=== PATIENT | male | born 1985 | race Caucasian/White ===

== ENCOUNTER 2017-01-05 11:07 | Inpatient (IN) | payer OTHER ==
--- NOTE | 2016-12-31 11:09 | PAT Medication Instructions ---
Service Date Dec 31, 2016. Current Home Medication List No Active Prescriptions or Reported Meds Medication Instructions For Your Scheduled Surgery No Active Prescriptions or Reported Meds- Please contact PAT department if starting any new medications prior to surgery. If you have any questions please call us at [phone] or [phone] or [phone]
--- NOTE | 2016-12-31 11:38 | DIAGNOSTIC IMAGING REPORT ---
CHEST 2 VIEWS ROUTINE CLINICAL HISTORY: PAT COMPARISON STUDY: No previous studies for comparison. FINDINGS: The cardiac and mediastinal contours are normal. There is no evidence of focal pulmonary consolidation. There is no evidence of failure. No pleural effusions are visualized.[ IMPRESSION: No active disease in the chest. Electronically signed by: Clifton Reyes M.D. 12/31/2016 11:36 AM Dictated Date/Time: 12/31/2016 11:35 AM
[2016-12-31 12:00] LABS: BASO % 0.4 %; BASO ABS # 0.03 K/uL (0-0.2); COMPLETE YES; EOS % 3.4 %; IG% 0.4 %; LYMPH % 32.5 %; MEAN CELL VOLUME 90.6 fL (80-100); MEAN CORPUSCULAR HEMOGLOBIN 30.8 pg (25-34); MEAN PLATELET VOLUME 10.6 fL (7.4-10.4); MONO % 8.8 %; NEUT % 54.5 %; PLATELET COUNT 185 K/uL (130-400); WHITE BLOOD COUNT 7.07 K/uL (4.8-10.8)
[2016-12-31 12:01] LABS: URINE APPEARANCE CLEAR (CLEAR); URINE BILIRUBIN NEG (NEG); URINE COLOR YELLOW; URINE NITRITE NEG (NEG); URINE SPECIFIC GRAVITY 1.019 (1.000-1.030); UROBILINOGEN NEG (NEG); ZZUR CULT IF INDIC CLEAN CATCH NO
[2016-12-31 12:07] LABS: BUN/CREATININE RATIO 9.3 (10-20); CALCIUM 9.2 mg/dl (8.5-10.1); POTASSIUM 3.7 mmol/L (3.5-5.1)
[2016-12-31 12:11] LABS: MANUAL MICROSCOPIC REQUIRED? NO; REVIEW REQ? NO
[2017-01-05] VITALS (7 sets, daily range): BP systolic 115–132; BP diastolic 67–89; PULSE 76–112; TEMP 36.3–36.8; O2SAT 97–99; Ht 177.8 cm; Wt 96.8 kg
[~2017-01-05] VITALS: Ht 177.8 cm; Wt 96.8 kg
[~2017-01-05 11:07] MED LIST: CLINDAMYCIN 600 MG/54 ML D5W IV SCH; CLINDAMYCIN PHOS 150 MG/ML 2 ML VIAL IV SCH; LACTATED RINGER'S 1000ML 1,000 ML IV SCH
[2017-01-05] MEDS ORDERED: IBUP-103 PO (11:38)
[2017-01-05] MEDS ORDERED: ACET-1256 PO (11:38)
[2017-01-05] MEDS ORDERED: EpHEDrine SULFATE INJ 50 MG/ML AMP IV PRN (12:30)
[2017-01-05] MEDS ORDERED: HYDROmorphone INJ 1 MG/ML SYR IV PRN (12:30)
[2017-01-05] MEDS ORDERED: ATROPINE SULFATE 0.1 MG/ML 5ML SYR IV PRN (12:30)
[2017-01-05] MEDS ORDERED: ONDANSETRON INJ 2 MG/ML 2 ML VIAL IV PRN (12:30)
[2017-01-05] MEDS ORDERED: PROMETHAZINE HCL INJ 6.25 MG in SODIUM CHLORIDE 0.9% 50ML 50 ML IV PRN (12:30)
[2017-01-05] MEDS ORDERED: MIDAZOLAM HCL 1 MG/ML 2ML VIAL ONE (12:32)
[2017-01-05] MEDS ORDERED: FENTANYL CITRATE INJ 50 MCG/1 ML 2 ML VIAL ONE ×3 (12:32→15:19)
--- NOTE | 2017-01-05 12:34 | History & Physical Bridge Note ---
H&P Re-Evaluation Bridge Note: I have examined the patient, reviewed the History & Physical and in the interval since the performance of the History & Physical I have noted the following changes of clinical significance: No changes noted
--- NOTE | 2017-01-05 12:35 | History and Physical ---
History & Physical Date Jan 05, 2017. Chief Complaint Back and leg pain History of Present Illness The patient is a 31 year old male with complaints of Additional History Hepatic Disease: No Endocrine Disorder: No Kidney Disease: No Hypertension: No Heart Disease: No Bleeding Tendencies: No Infectious Diseases: No Allergies Coded Allergies: Penicillins (Verified Allergy, Unknown, UNKNOWN, 01/05/17) Home Medications Scheduled Acetaminophen (Tylenol), 2 TAB PO Q6 Ibuprofen Tab (Advil), 400-600 MG PO Q6H Physical Examination Skin: warm/dry, no rash Eyes: normal inspection, EOMI, sclerae normal ENT: normal ENT inspection, pharynx normal Head: normocephalic, atraumatic Neck: supple, no adenopathy, trachea midline Respiratory/Chest: lungs clear, normal breath sounds, no respiratory distress Cardiovascular: regular rate, rhythm, no edema, no murmur Abdomen / GI: normal bowel sounds, non tender Back: normal inspection Extremities: normal inspection, normal range of motion Neurologic/Psych: no motor/sensory deficits, alert, normal reflexes, oriented x 3 Diagnosis Herniated nucleus pulposus recurrent in nature L5-S1 Plan of Treatment Lumbar decompression and fusion L5-S1
[2017-01-05] MEDS ORDERED: BUPIVACAINE/EPINEPHRINE 0.5% MPF 1:200,000 10 ML VIAL ONE (13:05)
[2017-01-05] MEDS ORDERED: BACITRACIN 50000 UNIT VIAL ONE (13:06)
[2017-01-05] MEDS ORDERED: HYDROmorphone INJ 2 MG/ML SYR/VIAL ONE (13:27)
[2017-01-05] MEDS ORDERED: DEXAMETHASONE SOD INJ 4 MG/ML VIAL ONE (14:03)
[2017-01-05] MEDS ORDERED: LIDOCAINE HCL 2% 2 ML VIAL (20MG/ML) ONE (14:04)
[2017-01-05] MEDS ORDERED: PROPOFOL IV EMULSION 10 MG/ML 20 ML VIAL IV ONE (14:04)
[2017-01-05] MEDS ORDERED: LARYING-O-JET KIT (LTA) ONE ×2 (14:22)
[2017-01-05] MEDS ORDERED: NEOSTIGMINE METHYLSULFATE 1 MG/ML 10ML VIAL ONE (14:26)
[2017-01-05] MEDS ORDERED: GLYCOPYRROLATE INJ 0.2 MG/ML VIAL ONE (14:26)
[2017-01-05] MEDS ORDERED: FLOSEAL HEMOSTATIC MATRIX 10ML TOP ONE (15:05)
[2017-01-05] MEDS ORDERED: SODIUM CHLORIDE 0.9% 1000ML 1,000 ML IV SCH (15:19)
--- NOTE | 2017-01-05 15:20 | DIAGNOSTIC IMAGING REPORT ---
LUMBAR SPINE, INTRAOPERATIVE FLUOROSCOPY HISTORY: L5-S1 revision and decompression. FLUOROSCOPY TIME: 19 seconds. FINDINGS: Intraoperative fluoroscopy was provided for the lumbar spine. 2 fluoroscopic spot images were obtained. Posterior decompression fusion at L5-S1 with pedicle screws and rods. The hardware appears intact. IMPRESSION: Fluoroscopy provided for a L5-S1 posterior decompression and fusion. Electronically signed by: Erasto Sims M.D. 01/05/2017 3:19 PM Dictated Date/Time: 01/05/2017 3:18 PM
--- NOTE | 2017-01-05 15:24 | [facility] Operative Report ---
Operative Report Operative Date Jan 05, 2017. Pre-Operative Diagnosis Herniated nucleus pulposus recurrent in nature L5-S1 Post-Operative Diagnosis Herniated nucleus pulposus recurrent in nature L5-S1 Procedure(s) Performed #1 revision decompression L5-S1. 2 posterior spinal fusion L5-S1. #3 placement of posterior inch rotation L5-S1. #4 interbody fusion L 5 S1. #5 placement peek cage 12 x 22 mm L5-S1. #6 placement of locally harvested morcellized autograft in the posterior lateral gutters. #7 placement of osteoamp in the interbody space and posterior lateral gutters. Surgeon Threader Surgeon(s) Leigha Davalos PA-C Estimated Blood Loss 200ml Findings Recurrent disc herniation L5-S1 the right Specimens None per surgeon Description of Procedure Was met with preoperatively case discussed all questions are dressed. After informed consent patient was taken back to the operative suite and after intubation placed in a prone position on the Andrey table top Jared frame. All bony prominences were well-padded eyes inspected to ensure no external pressure. This point the lumbar spines prepped draped nostril fashion. Sharp dissection with the assistance of Bovie cautery was performed onto an exposing the remaining lamina and transverse processes of L5 and the sacral alar bilaterally. Revision complete laminectomy of L5 was performed identified significant compression traversing S1 nerve root on the right. There is evidence of recurrent disc herniation was removed in its entirety. Pedicle screws then placed in L5 and S1 levels bilaterally with assistance of fluoroscopy and the probably size joan placed. Through a transforaminal approach on the right complete discectomy was performed and plate created subcortical bleeding bone and a 12 x 22 mm peek cage filled with bone graft tapped in position. Rods were then compressed locked and final position bilaterally. The transverse processes of L5 and sacral alar burred to subcortical bleeding bone. Remaining locally harvested morcellized autograft bone graft was placed in the posterior gutters. 15 round NITO drain inserted. Incision closed with 1 Vicryl in the fascia 2-0 Vicryl subcutaneously for Monocryl for final skin closure. Sterile Steri-Strips sterile dressing placed. Patient awakened taken to PACU stable condition. Please note Leigha Martins present throughout the entire procedure involved in patient positioning complex portions of the procedure and final skin closure. I attest to the content of the Intraoperative Record and any orders documented therein. Any exceptions are noted below.
[2017-01-05] MEDS ORDERED: BISACODYL 10 MG SUPP PR PRN (15:30)
[2017-01-05] MEDS ORDERED: ACETAMINOPHEN IV 100 ML IV PRN (15:30)
[2017-01-05] MEDS ORDERED: PROMETHAZINE HCL INJ 12.5 MG in SODIUM CHLORIDE 0.9% 50ML 50 ML IV PRN (15:30)
[2017-01-05] MEDS ORDERED: DO NOT ADMINISTER FLU VACCINE PRN ×3 (15:30)
[2017-01-05] MEDS ORDERED: MAGNESIUM HYDROXIDE SUSP 30 ML UDC PO PRN (15:30)
[2017-01-05] MEDS ORDERED: LORAZEPAM 0.5 MG TAB PO PRN (15:30)
[2017-01-05] MEDS ORDERED: FAMOTIDINE 20 MG TAB PO PRN (15:30)
[2017-01-05] MEDS ORDERED: NALOXONE HCL 0.4 MG/1 ML VIAL/CARP IV PRN ×2 (15:30)
[2017-01-05] MEDS ORDERED: LORAZEPAM INJ 0.5 MG in SYRINGE 0 ML IV PRN (15:30)
[2017-01-05] MEDS ORDERED: SOD PHOSPHATE/SOD BIPHOSPHATE ENEMA 132 ML BTL PR PRN (15:30)
[2017-01-05] MEDS ORDERED: DO NOT ADMINISTER PNEUMOCOCCAL VACCINE PRN ×2 (15:30)
[2017-01-05] MEDS ORDERED: hydrOXYzine HCL 25 MG TAB PO PRN (15:30)
[2017-01-05] MEDS ORDERED: ACETAMINOPHEN 500 MG TAB PO PRN (15:30)
[2017-01-05] MEDS ORDERED: METOCLOPRAMIDE HCL INJ 5 MG/ML 2 ML VIAL IV PRN (15:30)
[2017-01-05] MEDS ORDERED: ALUMINUM/MAGNESIUM SUSP 30 ML UDC PO PRN (15:30)
[2017-01-05] MEDS ORDERED: HYDROmorphone HCL 0.5MG/ML 50 ML CASSETTE ONE (15:40)
[2017-01-05] MEDS ORDERED: ROCURONIUM BROMIDE 10 MG/ML 5 ML VIAL IV ONE (15:44)
[2017-01-05] MEDS: FENTANYL CITRATE INJ 50 MCG/1 ML 2 ML VIAL IV PRN ×4 (16:04→16:23)
--- NOTE | 2017-01-05 16:34 | Anesthesiology Progress Note ---
Anesthesia Post Op Note Date & Time Jan 05, 2017 at 16:33 Vital Signs Pain Intensity: 4 Vital Signs Past 12 Hours Date Time Temp Pulse Resp B/P (MAP) Pulse Ox O2 Delivery O2 Flow Rate FiO2 01/05/17 16:25 36.3 97 16 135/71 98 Nasal Cannula 4 01/05/17 16:15 91 14 124/69 99 Nasal Cannula 4 01/05/17 16:05 96 14 111/54 99 Nasal Cannula 4 01/05/17 15:55 99 14 106/62 99 Mask 10 01/05/17 15:45 109 14 116/58 100 Mask 10 01/05/17 15:37 36.7 118 14 127/64 98 Mask 10 01/05/17 11:25 36.8 76 18 128/82 (97) 99 Room Air Notes Mental Status: alert / awake / arousable, participated in evaluation Pt Amnestic to Procedure: Yes Nausea / Vomiting: adequately controlled Pain: adequately controlled Airway Patency, RR, SpO2: stable & adequate BP & HR: stable & adequate Hydration State: stable & adequate Anesthetic Complications: no major complications apparent Doing well. VSS
[2017-01-05] MEDS: HYDROmorphone HCL 0.5MG/ML 50 ML CASSETTE IV PRN ×2 (16:50→23:11)
[2017-01-05] MEDS: LACTATED RINGER'S 1000ML 1,000 ML IV SCH ×2 (18:13→21:52)
[2017-01-05] MEDS: ONDANSETRON INJ 2 MG/ML 2 ML VIAL IV PRN ×2 (18:13→19:13)
[2017-01-05] MEDS: DOCUSATE SODIUM/SENNA 50/8.6MG TAB PO SCH ×2 (21:00→21:05)
[2017-01-05] MEDS: DEXAMETHASONE INJ 6 MG in SYRINGE 0 ML IV SCH (21:52)
[2017-01-05] MEDS: CLINDAMYCIN IV 600 MG in DEXTROSE 5% 50ML 50 ML IV SCH (21:52)
[2017-01-06 03:35] VITALS: BP 130/65; PULSE 99; TEMP 36.7; O2SAT 96
[2017-01-06] MEDS: LACTATED RINGER'S 1000ML 1,000 ML IV SCH (03:48)
[2017-01-06] MEDS ORDERED: HYDROmorphone INJ 0.5 MG/0.5 ML SYR IV PRN (06:00)
[2017-01-06] MEDS ORDERED: HYDROmorphone INJ 1 MG/ML SYR IV PRN (06:00)
[2017-01-06] MEDS ORDERED: OXYCODONE HCL IR 5 MG TAB (IMMEDIATE RELEASE) PO PRN (06:00)
[2017-01-06] MEDS ORDERED: DC PCA ONE (06:00)
[2017-01-06] MEDS: CLINDAMYCIN IV 600 MG in DEXTROSE 5% 50ML 50 ML IV SCH (06:09)
[2017-01-06] MEDS: DEXAMETHASONE INJ 6 MG in SYRINGE 0 ML IV SCH ×2 (06:09→14:21)
[2017-01-06 06:16] LABS: BASO % 0.1 %; BASO ABS # 0.01 K/uL (0-0.2); COMPLETE YES; HEMATOCRIT 39.4 % (42-52); IG% 0.3 %; LYMPH % 5.6 %; LYMPH ABS # 1.01 K/uL (1.2-3.4); MEAN CELL VOLUME 89.7 fL (80-100); MEAN CORPUSCULAR HGB CONC 34.5 g/dl (32-36); MEAN PLATELET VOLUME 10.6 fL (7.4-10.4); MONO % 5.6 %; NEUT % 88.4 %; PLATELET COUNT 181 K/uL (130-400); RED BLOOD COUNT 4.39 M/uL (4.7-6.1); WHITE BLOOD COUNT 18.17 K/uL (4.8-10.8)
[2017-01-06] MEDS ORDERED: NURSING VERBAL MED ORDER ONE (06:30)
[2017-01-06 06:54] LABS: BUN/CREATININE RATIO 12.7 (10-20); CALCIUM 9.1 mg/dl (8.5-10.1); CREATININE 1.1 mg/dl (0.60-1.40); POTASSIUM 3.9 mmol/L (3.5-5.1)
[2017-01-06 07:07] VITALS: BP 116/56; PULSE 100; TEMP 36.8; O2SAT 94
[2017-01-06] MEDS ORDERED: RXC5 PO (07:47)
--- NOTE | 2017-01-06 07:47 | Discharge Instructions ---
Discharge Instructions Date of Service Jan 06, 2017. Admission Reason for Admission: Lumbar Spinal Stenosis Discharge Discharge Diagnosis / Problem: lumbar stenosis Discharge Goals Goal(s): Improve function Activity Recommendations Activity Limitations: per Instructions/Follow-up section . Instructions / Follow-Up Instructions / Follow-Up ACTIVITY RECOMMENDATIONS: SELF CARE INSTRUCTIONS AFTER THORACIC/LUMBAR FUSIONS 1. You may walk to your tolerance. It is good exercise for your legs and back. Expect some back and intermittent leg aches and pains. 2. You may perform "counter-top" level activities (make a sandwich, selena with a project, etc.). 3. No bending or lifting of more than 10 pounds or back twisting of any nature (roll like a log when turning in bed). 4. You may ride in a car for 20-30 minutes at a time. No driving until after your first visit with your doctor. 5. Frequent changes of position and restricting sitting to 30 minutes at a time will help limit the amount of back spasms and stiffness you may experience. 6. You may discontinue the use of ambulatory aids (cane, crutches, etc.) once your strength and confidence allow. 7. You may firearms inspector the shower and let water strike your incision when you arrive home at least once daily. Do not take a tub bath, sit in a hot tub or go into a swimming pool until after your first recheck in the office. SPECIAL CARE INSTRUCTIONS: VERY IMPORTANT TO READ AND REVIEW A. Your surgical incision has been closed with a cosmetic suture under the skin that will dissolve in about 6 weeks. In 14 days, you can use a pair of clean scissors and cut the suture that is left outside of the skin at the ends of your incision. 1. The small skin tapes can be removed 7 days after surgery if they have not fallen off by that point. 2. You may keep the wound open to air as much as possible to promote healing after post-op day number 5 unless told otherwise by your doctor. 3. If you think the wound looks like it is becoming infected (redness or worsening drainage) and/or you are experiencing fever, chill or worsening back pain and muscle spasms, contact the office so that we may evaluate you as soon as possible. B. Complications are uncommon, but please contact us if you have any signs or symptoms of: 1. wound infection (fever higher than 102.5 degrees F, redness, separation of wound, drainage, or increasing pain from the incision) 2. blood clots in legs (pain, swelling, redness and warmth in legs) 3. urinary tract infection (fever higher than 102.5 degrees F, burning upon urination or increased frequency of urination) 4. nerve problems (inability to walk on your toes or heels, numbness, loss of bowel or bladder control) 5. any other symptoms that concern you C. Please call the office at if you have any concerns or questions about your operation or recovery. D. No smoking! Smoking drastically decreases the chance of a solid fusion. E. Do not take any anti-inflammatory medications (Indocin, Advil, Motrin, Aspirin, Naprosyn, etc.) as these may inhibit the chance of a solid fusion. Tylenol is okay to take for pain. MANAGING PAIN AFTER SPINAL SURGERY 1. Narcotic medication is intended for short-term use and will be provided for surgical pain. Surgical pain usually lasts for a period of 4-6 weeks. Narcotic medication includes Percocet, Vicodin, Darvocet, Tylenol #3 or Lortab. 2. Longer-term pain is more appropriately treated with non-narcotic medication such as Tylenol ES. 3. Muscle spasm is not appropriately treated with narcotics. Muscle relaxers such as Soma, Flexeril or Skelaxin can be used along with Tylenol ES. 4. Remember that we all live with some "aches and pains". This is not unusual or uncommon after an injury or as we get older. a. Back pain is expected and may include muscle spasms for 4 to 6 weeks after surgery. The pain should gradually improve. If the pain worsens for no apparent reason, please contact the office. b. Intermittent leg pain may also be experienced and should not be concerned about unless it worsens for no apparent reason. If so, please contact the office. 5. We will provide appropriate medication within the normal guidelines of their prescribed use. We will also be very cautious and aware of potential abuse and extended duration of patients' medication needs. a. Pain medications are for your comfort and to assist with sleep and rest so that the tissue can heal. They are not provided in order to return to normal activity and should not be used through the day. To do so or worsening pain at night can result from ongoing tissue damage and development of tolerance to the prescribed medicine. 6. Please allow 2-3 days to process refills. Prescriptions will not be mailed but must be picked up at the office. FOLLOW UP VISIT: Keep your scheduled follow-up appointment. Any questions, please call the office at . Current Hospital Diet Patient's current hospital diet: Regular Diet Discharge Diet Recommended Diet: Regular Diet Procedures Procedures Performed: #1 revision decompression L5-S1. 2 posterior spinal fusion L5-S1. #3 placement of posterior inch rotation L5-S1. #4 interbody fusion L 5 S1. #5 placement peek cage 12 x 22 mm L5-S1. #6 placement of locally harvested morcellized autograft in the posterior lateral gutters. #7 placement of osteoamp in the interbody space and posterior lateral gutters. Pending Studies Studies pending at discharge: no Medical Emergencies . Who to Call and When: Medical Emergencies: If at any time you feel your situation is an emergency, please call 911 immediately. . Non-Emergent Contact Non-Emergency issues call your: Primary Care Provider . "Provider Documentation" section prepared by Carl Chopra. . VTE Core Measure Inpt VTE Proph given/why not?: Savita Olvera, SCD's
--- NOTE | 2017-01-06 08:56 | Anesthesiology Progress Note ---
Anesthesia Post Op Note Date & Time Jan 06, 2017 at 08:55 Vital Signs Pain Intensity: 2 Vital Signs Past 12 Hours Date Time Temp Pulse Resp B/P (MAP) Pulse Ox O2 Delivery O2 Flow Rate FiO2 01/06/17 08:09 Room Air 01/06/17 07:07 36.8 100 16 116/56 (76) 94 Room Air 01/06/17 03:35 36.7 99 16 130/65 (86) 96 Room Air 01/05/17 23:58 Room Air 01/05/17 23:10 36.7 88 16 122/67 (85) 97 Room Air Notes Mental Status: alert / awake / arousable Pt Amnestic to Procedure: Yes Nausea / Vomiting: improving with treatment Pain: adequately controlled Airway Patency, RR, SpO2: stable & adequate BP & HR: stable & adequate Hydration State: stable & adequate
--- NOTE | 2017-01-06 12:11 | Progress Note ---
Progress Note Date of Service Jan 06, 2017. Progress Note Patient's leg pain markedly improved. Back pain is controlled. Signs are stable. NITO drain decreasing appropriately. On exam is good strength testing appears comfortable. Assessment status post lumbar depression fusion replant this time will advance physical therapy bowel regimen anticipate home tomorrow.
[2017-01-06] MEDS ORDERED: KETOROLAC TROMETHAMINE 30 MG/ML VIAL IV PRN (12:15)
[2017-01-06 16:43] VITALS: BP 119/64; PULSE 75; TEMP 36.7; O2SAT 98
[2017-01-06 20:26] VITALS: BP 126/62; PULSE 83; TEMP 36.7; O2SAT 95
[2017-01-06] MEDS: DOCUSATE SODIUM/SENNA 50/8.6MG TAB PO SCH (20:37)
[2017-01-06 23:13] VITALS: BP 124/62; PULSE 94; TEMP 36.6; O2SAT 96
[2017-01-07 06:00] VITALS: BP 128/74; PULSE 93; TEMP 36.7; O2SAT 98
[2017-01-07] MEDS: POLYETHYLENE (MIRALAX) 17 GM PACK PO SCH ×2 (06:04→11:38)
[2017-01-07 12:28] VITALS: BP 128/74; PULSE 93; TEMP 36.7; O2SAT 98
--- NOTE | 2017-01-07 14:45 | Discharge Summary ---
Orthopedic Discharge Summary Admission Date/Reason Jan 05, 2017 at 15:21 Lumbar Spinal Stenosis. Discharge Date/Disposition Jan 07, 2017 Home Diagnosis Principal Diagnosis: Lumbar spinal stenosis Admission Physical Exam As per Admitting History & Physical. Hospital Course Patient underwent lumbar decompression fusion tolerated this well as taken to the orthopedic floor postoperatively. Postoperative day #1 is up in amatory leg pain improved. He progressed to postoperative day #2. NITO drain decreased properly. Subsequently discharge home. Discharge orders and instructions found on the chart for further review. Discharge Instructions Please refer to the electronic Patient Visit Report (Discharge Instructions) for additional information.
== END 2017-01-07 13:35 | disposition home or self-care (01) | DRG 460 ==
LOC: C.ACU 11:07 → C.3E 15:21 → ENRESERV 16:22
PROVIDERS: ADMIT Orthopaedic Surgery Orthopaedic Surgery of the Spine; ATTEND Orthopaedic Surgery Orthopaedic Surgery of the Spine
PROC: 0SG30A1 (ICD-10-PCS; principal; 2017-01-05 12:55)
PROC: 0ST40ZZ Resection of Lumbosacral Disc, Open Approach (ICD-10-PCS; principal; 2017-01-05 12:55)
DX: M48.06 Spinal stenosis, lumbar region (principal); M51.27 Other intervertebral disc displacement, lumbosacral region